=== PATIENT | male | born 1960 | race African-American/Black ===

== ENCOUNTER 2017-12-12 15:57 | Emergency (ER) | payer MEDICAID ==
[~2017-12-12] VITALS: Ht 182.9 cm; Wt 91.0 kg
[~2017-12-12 15:57] MED LIST: ABILIFY; HALOPERIDOL
[2017-12-12] MEDS ORDERED: ONDANSETRON HCL 4MG/2ML INJ IV STA (16:34)
[2017-12-12] MEDS ORDERED: MORPHINE SULFATE 4 MG/ML CPJ (NOT FOR IM USE) IV STA (16:34)
[2017-12-12] MEDS ORDERED: SODIUM CHLORIDE 0.9% 1,000 ML IV ONE (16:34)
[2017-12-12] MEDS ORDERED: FAMOTIDINE 20MG/2ML VIAL IV ONE (16:45)
[2017-12-12] MEDS ORDERED: MAGNESIUM/ALUMINUM HYDROXIDE/SIMETHICONE 30ML UDC PO ONE (16:45)
[2017-12-12 17:17] LABS: BASOPHILS % 0.4 % (0.0-2.0); EOSINOPHILS % 1.2 % (0.0-5.0); HEMATOCRIT. 29.1 % (42.0-52.0); HEMOGLOBIN. 9.7 g/dL (14.0-18.0); MEAN CORPUSCULAR HEMOGLOBIN 30.5 pg (28.0-32.0); MEAN CORPUSCULAR VOLUME 91.3 fL (80.0-94.0); MEAN PLATELET VOLUME 9.3 fl (7.4-10.4); MONOCYTES % 13.5 % (2.0-8.0); NEUTROPHILS % 65.9 % (40.0-76.0); PLATELET 238 x1000/uL (130-400); RED BLOOD CELL COUNT 3.19 mill/uL (4.7-6.1)
[2017-12-12 17:21] LABS: CHLORIDE 102 mEq/L (98-107)
[2017-12-12 17:23] LABS: INR 1.1; PARTIAL THROMBOPLASTIN TIME 31.8 sec (23.4-31.0); PROTHROMBIN TIME 11.1 sec (9.1-11.1)
[2017-12-12 17:24] LABS: ETHANOL BLOOD < 10 mg/dL
[2017-12-12 19:28] VITALS: BP 123/82
== END 2017-12-12 20:24 | disposition home or self-care (01) ==
LOC: ER 16:32 → CANBEDREQ 22:56
DX: R51 Headache (principal); R07.89 Other chest pain; R10.13 Epigastric pain; I10 Essential (primary) hypertension; F17.200 Nicotine dependence, unspecified, uncomplicated; Z98.890 Other specified postprocedural states
CPT/HCPCS: 36415; 70450; 71045; 74176; 80053; 83880; 84484; 85025; 85610; 85730; 93005; 99285; G0482; J2270; J2405; J3490; J7030

== ENCOUNTER 2018-11-17 07:59 | Emergency (ER) | payer MEDICAID ==
[~2018-11-17] VITALS: Ht 177.8 cm; Wt 100.0 kg
[2018-11-17] MEDS ORDERED: SODIUM CHLORIDE 0.9% 2,000 ML IV ONE (09:05)
[2018-11-17] MEDS ORDERED: ONDANSETRON HCL 4MG/2ML INJ IV STA (09:05)
[2018-11-17 09:21] LABS: CHLORIDE 107 mEq/L (98-107)
[2018-11-17 09:22] LABS: BASOPHILS % 0.5 % (0.0-2.0); EOSINOPHILS % 0.7 % (0.0-5.0); HEMATOCRIT. 37.9 % (42.0-52.0); HEMOGLOBIN. 12.5 g/dL (14.0-18.0); LYMPHOCYTES % 41.6 % (20.0-50.0); MEAN CORPUSCULAR HEMOGLOBIN 30.6 pg (28.0-32.0); MEAN CORPUSCULAR VOLUME 92.9 fL (80.0-94.0); MEAN PLATELET VOLUME 10.2 fl (7.4-10.4); MONOCYTES % 8.6 % (2.0-8.0); NEUTROPHILS % 48.6 % (40.0-76.0); PLATELET 187 x1000/uL (130-400); RED BLOOD CELL COUNT 4.08 mill/uL (4.7-6.1); RED CELL DISTRIBUTION WIDTH 14.6 % (11.6-14.6)
[2018-11-17] MEDS ORDERED: SODIUM CHLORIDE 0.9% 1,000 ML IV ONE (10:45)
[2018-11-17] MEDS ORDERED: POTASSIUM CHLORIDE INJ 40 MEQ in DEXT 5% WATER 250 ML IV ONE (10:45)
[2018-11-17] MEDS ORDERED: POTASSIUM CHLORIDE 20MEQ TABLET SR PO ONE (10:45)
[2018-11-17 11:30] LABS: CLARITY URINE CLEAR (CLEAR); COLOR URINE YELLOW (YELLOW); KETONES URINE NEGATIVE (NEGATIVE); LEUKOCYTE ESTERASE URINE NEGATIVE (NEGATIVE); NITRITE URINE NEGATIVE (NEGATIVE); OCCULT BLOOD URINE NEGATIVE (NEGATIVE); PH URINE 5.5 (4.5-8.0); PROTEIN URINE TRACE (NEGATIVE)
[2018-11-17 17:20] VITALS: BP 126/79
== END 2018-11-17 17:27 | disposition home or self-care (01) ==
LOC: ER 07:59
DX: R55 Syncope and collapse (principal); R11.10 Vomiting, unspecified; E87.2 Acidosis; E87.6 Hypokalemia; G40.909 Epilepsy, unspecified, not intractable, without status epilepticus; Z86.59 Personal history of other mental and behavioral disorders
CPT/HCPCS: 36415; 71045; 80053; 81003; 82962; 83605; 83690; 83735; 84484; 85025; 93005; 96361; 96374; 96375; 99284; J2405; J3480; J7030; J7060

== ENCOUNTER 2019-02-11 08:50 | Inpatient (IN) | payer MEDICAID ==
[~2019-02-11] VITALS: Ht 177.8 cm; Wt 90.3 kg
[2019-02-11] MEDS ORDERED: SODIUM CHLORIDE 0.9% 1,000 ML IV ONE (09:03)
[2019-02-11 10:13] LABS: CHLORIDE 106 mEq/L (98-107)
[2019-02-11 10:17] LABS: ETHANOL BLOOD < 10 mg/dL
[2019-02-11 10:20] LABS: BASOPHILS % 0.3 % (0.0-2.0); EOSINOPHILS % 1.2 % (0.0-5.0); HEMATOCRIT. 38.2 % (42.0-52.0); HEMOGLOBIN. 12.7 g/dL (14.0-18.0); LDL CHOLESTEROL 58 mg/dL (5-100); LYMPHOCYTES % 22.6 % (20.0-50.0); MEAN CORPUSCULAR VOLUME 93.3 fL (80.0-94.0); MEAN PLATELET VOLUME 10.3 fl (7.4-10.4); NEUTROPHILS % 64.9 % (40.0-76.0); PLATELET 169 x1000/uL (130-400); RED BLOOD CELL COUNT 4.09 mill/uL (4.7-6.1); RED CELL DISTRIBUTION WIDTH 14.7 % (11.6-14.6)
[2019-02-11] MEDS ORDERED: IOHEXOL-350 100 ML BOTTLE ONE (14:29)
[2019-02-11 20:50] VITALS: BP_SYST 114; BP_SYST 126; BP_SYST 139; BP_DIAS 65; BP_DIAS 81; BP_DIAS 87
[2019-02-11] MEDS: LEVETIRACETAM 500MG TABLET PO SCH (22:04)
[2019-02-11] MEDS ORDERED: INFLUENZA VIRUS VACCINE(AFLURIA) 0.5ML SYR IM ONE (22:45)
[2019-02-11] MEDS ORDERED: QUET300T19 PO (23:00)
[2019-02-11] MEDS ORDERED: LOSA50TA41 PO (23:00)
[2019-02-11] MEDS ORDERED: CHOL200010 PO (23:00)
[2019-02-11] MEDS ORDERED: IBUP-2028 PO (23:00)
[2019-02-11] MEDS ORDERED: SERT50TA12 PO (23:00)
[2019-02-11] MEDS ORDERED: OXCA300T4 PO (23:00)
[2019-02-11] MEDS ORDERED: ACETAMINOPHEN 325MG TABLET PO PRN (23:45)
[2019-02-11] MEDS ORDERED: ONDANSETRON HCL 4MG/2ML INJ IV PRN (23:45)
[2019-02-12] VITALS: BP 103/54
[2019-02-12] MEDS: LOSARTAN POTASSIUM 50 MG TABLET PO SCH ×2 (01:00→08:25)
[2019-02-12 04:00] VITALS: BP 118/64
[2019-02-12 07:06] LABS: CHLORIDE 108 mEq/L (98-107)
[2019-02-12 07:19] LABS: CREATINE KINASE 570 IU/L (39-308)
[2019-02-12 07:21] LABS: CREATINE KINASE MB FRACTION 7.4 ng/mL (0.5-3.6)
[2019-02-12 07:32] LABS: HEMATOCRIT. 38.4 % (42.0-52.0); HEMOGLOBIN. 12.9 g/dL (14.0-18.0); MEAN CORPUSCULAR HEMOGLOBIN 31.3 pg (28.0-32.0); MEAN CORPUSCULAR VOLUME 93.1 fL (80.0-94.0); RED BLOOD CELL COUNT 4.12 mill/uL (4.7-6.1); RED CELL DISTRIBUTION WIDTH 14.7 % (11.6-14.6)
[2019-02-12 08:00] VITALS: BP 112/59
[2019-02-12] MEDS: QUETIAPINE FUMARATE 50MG TABLET PO SCH ×3 (08:22→18:09)
[2019-02-12] MEDS: LEVETIRACETAM 500MG TABLET PO SCH ×2 (08:22→22:41)
[2019-02-12] MEDS: ENOXAPARIN 40MG/0.4ML SYR SUBCUT SCH (08:23)
[2019-02-12] MEDS: SERTRALINE HCL 50MG TABLET PO SCH (08:25)
[2019-02-12] MEDS: ASPIRIN 81MG TABLET PO SCH (11:50)
[2019-02-12 12:00] VITALS: BP 144/69
[2019-02-12 16:00] VITALS: BP_SYST 86; BP_SYST 96; BP_SYST 99; BP_DIAS 50; BP_DIAS 56; BP_DIAS 62
[2019-02-12 17:50] LABS: CREATINE KINASE 463 IU/L (39-308)
[2019-02-12 17:51] LABS: CREATINE KINASE MB FRACTION 5.3 ng/mL (0.5-3.6)
[2019-02-12 18:11] LABS: CLARITY URINE CLEAR (CLEAR); COLOR URINE YELLOW (YELLOW); KETONES URINE NEGATIVE (NEGATIVE); LEUKOCYTE ESTERASE URINE NEGATIVE (NEGATIVE); NITRITE URINE NEGATIVE (NEGATIVE); OCCULT BLOOD URINE NEGATIVE (NEGATIVE); PH URINE 6.5 (4.5-8.0); PROTEIN URINE NEGATIVE (NEGATIVE); SPECIFIC GRAVITY URINE 1.011 (1.005-1.030)
[2019-02-12 18:38] LABS: *BENZODIAZEPINES SCREEN URINE NEGATIVE (NEGATIVE); *COCAINE SCREEN URINE NEGATIVE (NEGATIVE); METHADONE URINE SCREEN NEGATIVE (NEGATIVE); OPIATES URINE SCREEN NEGATIVE (NEGATIVE)
[2019-02-12 18:39] LABS: *AMPHETAMINES SCREEN URINE NEGATIVE (NEGATIVE); *BARBITURATES SCREEN URINE NEGATIVE (NEGATIVE); CANNABINOID URINE SCREEN NEGATIVE (NEGATIVE); PHENCYCLIDINE URINE SCREEN NEGATIVE (NEGATIVE)
[2019-02-12 20:01] VITALS: BP_SYST 82; BP_SYST 84; BP_DIAS 47; BP_DIAS 48
[2019-02-12 20:55] LABS: PLATELET 137 x1000/uL (130-400); PLATELET ESTIMATE NORMAL
[2019-02-12] MEDS ORDERED: SODIUM CHLORIDE 0.9% 1,000 ML IV SCH (23:52)
[2019-02-12] MEDS: SODIUM CHLORIDE 0.9% 1,000 ML IV SCH (23:52)
[2019-02-13] VITALS: BP 92/51
[2019-02-13 04:00] VITALS: BP 105/62
[2019-02-13 06:48] LABS: HEMATOCRIT. 39.1 % (42.0-52.0); HEMOGLOBIN. 12.9 g/dL (14.0-18.0); MEAN CORPUSCULAR VOLUME 93.9 fL (80.0-94.0); MEAN PLATELET VOLUME 10.3 fl (7.4-10.4); PLATELET 184 x1000/uL (130-400); RED BLOOD CELL COUNT 4.17 mill/uL (4.7-6.1)
[2019-02-13 07:23] LABS: CHLORIDE 106 mEq/L (98-107)
[2019-02-13 08:00] VITALS: BP 82/44
[2019-02-13] MEDS: ENOXAPARIN 40MG/0.4ML SYR SUBCUT SCH (09:09)
[2019-02-13] MEDS: LEVETIRACETAM 500MG TABLET PO SCH (09:09)
[2019-02-13] MEDS: QUETIAPINE FUMARATE 50MG TABLET PO SCH (09:09)
[2019-02-13] MEDS: ASPIRIN 81MG TABLET PO SCH (09:11)
[2019-02-13] MEDS: SERTRALINE HCL 50MG TABLET PO SCH (09:13)
[2019-02-13] MEDS: SODIUM CHLORIDE 0.9% 1,000 ML IV SCH (09:52)
[2019-02-13 12:00] VITALS: BP 112/60
[2019-02-13 13:46] VITALS: BP 112/60
[2019-02-13] MEDS ORDERED: KEPPSOL GT (13:53)
[2019-02-13 17:12] LABS: PLATELET ESTIMATE NORMAL
== END 2019-02-13 14:35 | disposition home or self-care (01) | DRG 204 ==
LOC: ER 08:50 → 7WST 13:10 → EDBEDREQSVC 13:21 → EDBEDREQ 13:21 → EDBEDREQTM 13:21 → ENRESERV 19:46
PROVIDERS: ADMIT Internal Medicine; ATTEND Internal Medicine
PROC: 4A10X4Z Monitoring of Central Nervous Electrical Activity, External Approach (ICD-10-PCS; principal; 2019-02-12)
DX: I95.1 Orthostatic hypotension (principal); G92 Toxic encephalopathy; S05.71XA Avulsion of right eye, initial encounter; G40.909 Epilepsy, unspecified, not intractable, without status epilepticus; X58.XXXA Exposure to other specified factors, initial encounter; I10 Essential (primary) hypertension; Y93.89 Activity, other specified; Z86.73 Personal history of transient ischemic attack (TIA), and cerebral infarction without residual deficits; Y92.89 Other specified places as the place of occurrence of the external cause; Y99.8 Other external cause status
CPT/HCPCS: 36415; 70496; 70551; 71045; 80048; 80305; 80320; 81003; 82550; 82553; 82962; 83605; 83721; 84145; 84484; 93005; 93306; 93880; 97161; 97166; 99285; J1650; J7030; Q9967; G0480

== ENCOUNTER 2019-11-11 00:50 | Inpatient (IN) | payer MEDICAID ==
[~2019-11-11] VITALS: Ht 177.8 cm; Wt 86.6 kg
[~2019-11-11 00:50] MED LIST changes: -ABILIFY; +CHOL200010 PO; -HALOPERIDOL; +IBUP-2028 PO; +KEPPSOL GT; +LOSA50TA41 PO; +OXCA300T4 PO; +QUET300T19 PO; +SERT50TA12 PO
[2019-11-11] MEDS ORDERED: SODIUM CHLORIDE 0.9% 1,000 ML IV ONE ×2 (01:23→05:20)
[2019-11-11 02:01] LABS: CHLORIDE 97 mEq/L (98-107)
[2019-11-11 02:05] LABS: ETHANOL BLOOD < 10 mg/dL
[2019-11-11 02:18] LABS: BASOPHILS % 0.4 % (0.0-2.0); EOSINOPHILS % 0.2 % (0.0-5.0); HEMATOCRIT. 40.8 % (42.0-52.0); HEMOGLOBIN. 13.8 g/dL (14.0-18.0); LYMPHOCYTES % 15.2 % (20.0-50.0); MEAN CORPUSCULAR HEMOGLOBIN 31.7 pg (28.0-32.0); MEAN CORPUSCULAR VOLUME 93.3 fL (80.0-94.0); MEAN PLATELET VOLUME 10.6 fl (7.4-10.4); NEUTROPHILS % 75.2 % (40.0-76.0); PLATELET 181 x1000/uL (130-400); RED BLOOD CELL COUNT 4.37 mill/uL (4.7-6.1); RED CELL DISTRIBUTION WIDTH 14.5 % (11.6-14.6)
[2019-11-11 02:59] LABS: PROTHROMBIN TIME 10.6 sec (9.6-11.0)
[2019-11-11] MEDS ORDERED: CEFTRIAXONE 1 G PREMIX 50 ML IV ONE (04:00)
[2019-11-11] MEDS ORDERED: AZITHROMYCIN 500 MG in DEXT 5% WATER 250 ML IV ONE (04:00)
[2019-11-11 09:00] VITALS: BP 95/52
[2019-11-11] MEDS ORDERED: ACETAMINOPHEN 325MG TABLET PO PRN (10:30)
[2019-11-11] MEDS ORDERED: ONDANSETRON HCL 4MG/2ML INJ IV PRN (10:30)
[2019-11-11] MEDS: ENOXAPARIN 30MG/0.3ML SYR SUBCUT SCH (11:21)
[2019-11-11] MEDS: SODIUM CHLORIDE 0.9% 1,000 ML IV SCH ×2 (11:22→23:14)
[2019-11-11] MEDS ORDERED: SODIUM POLYSTYRENE SULFONATE 15 G/60 ML BOT PO NR (11:30)
[2019-11-11 12:00] VITALS: BP 95/59
[2019-11-11 16:00] VITALS: BP 100/58
[2019-11-11 18:02] LABS: CLARITY URINE CLEAR (CLEAR); COLOR URINE YELLOW (YELLOW); KETONES URINE NEGATIVE (NEGATIVE); LEUKOCYTE ESTERASE URINE NEGATIVE (NEGATIVE); NITRITE URINE NEGATIVE (NEGATIVE); OCCULT BLOOD URINE NEGATIVE (NEGATIVE); PROTEIN URINE NEGATIVE (NEGATIVE); SPECIFIC GRAVITY URINE 1.009 (1.005-1.030); UROBILINOGEN URINE 0.2 E.U./dL (0.2-1.0)
[2019-11-11 18:16] LABS: METHADONE URINE SCREEN NEGATIVE (NEGATIVE)
[2019-11-11 18:17] LABS: *AMPHETAMINES SCREEN URINE NEGATIVE (NEGATIVE); *BARBITURATES SCREEN URINE NEGATIVE (NEGATIVE); *BENZODIAZEPINES SCREEN URINE NEGATIVE (NEGATIVE); *COCAINE SCREEN URINE NEGATIVE (NEGATIVE); CANNABINOID URINE SCREEN NEGATIVE (NEGATIVE); OPIATES URINE SCREEN NEGATIVE (NEGATIVE); PHENCYCLIDINE URINE SCREEN NEGATIVE (NEGATIVE)
[2019-11-11 20:00] VITALS: BP 123/79
[2019-11-11 21:04] LABS: CHLORIDE 103 mEq/L (98-107)
[2019-11-11 21:12] LABS: CREATINE KINASE 701 IU/L (39-308)
[2019-11-12] VITALS: BP 126/72
[2019-11-12] MEDS: SODIUM CHLORIDE 0.9% 1,000 ML IV SCH ×2 (02:15→09:37)
[2019-11-12 04:00] VITALS: BP 127/82
[2019-11-12] MEDS ORDERED: AZITHROMYCIN 500 MG in DEXT 5% WATER 250 ML IV SCH ×2 (06:00→09:00)
[2019-11-12] MEDS ORDERED: CEFTRIAXONE 1,000 MG in DEXTROSE 5% WATER 50 ML IV SCH ×2 (06:00→08:00)
[2019-11-12 06:31] LABS: BASOPHILS % 0.8 % (0.0-2.0); EOSINOPHILS % 3.8 % (0.0-5.0); HEMATOCRIT. 38.3 % (42.0-52.0); HEMOGLOBIN. 12.7 g/dL (14.0-18.0); LYMPHOCYTES % 35.9 % (20.0-50.0); MEAN CORPUSCULAR HEMOGLOBIN 31.4 pg (28.0-32.0); MEAN CORPUSCULAR VOLUME 94.9 fL (80.0-94.0); MEAN PLATELET VOLUME 10.7 fl (7.4-10.4); NEUTROPHILS % 45.5 % (40.0-76.0); PLATELET 163 x1000/uL (130-400); RED BLOOD CELL COUNT 4.04 mill/uL (4.7-6.1); RED CELL DISTRIBUTION WIDTH 14.5 % (11.6-14.6)
[2019-11-12 06:47] LABS: CREATINE KINASE 573 IU/L (39-308)
[2019-11-12 06:48] LABS: CREATINE KINASE MB FRACTION 3.8 ng/mL (0.5-3.6)
[2019-11-12 08:00] VITALS: BP 136/81
[2019-11-12] MEDS: ENOXAPARIN 30MG/0.3ML SYR SUBCUT SCH (09:32)
[2019-11-12] MEDS ORDERED: LEVETIRACETAM 500MG/5ML CUP GT SCH (11:15)
[2019-11-12] MEDS ORDERED: SERTRALINE HCL 50MG TABLET PO SCH (11:30)
[2019-11-12] MEDS ORDERED: LOSARTAN POTASSIUM 50 MG TABLET PO SCH (11:30)
[2019-11-12 12:00] VITALS: BP 145/87
[2019-11-12] MEDS ORDERED: QUETIAPINE FUMARATE 50MG TABLET PO SCH (15:30)
[2019-11-12 16:00] VITALS: BP 140/90
[2019-11-12 16:15] VITALS: BP 140/90
[2019-11-12] MEDS ORDERED: OXCARBAZEPINE 300MG TABLET PO SCH (17:00)
== END 2019-11-12 17:55 | disposition home or self-care (01) | DRG 139 ==
LOC: ER 00:50 → 7WST 04:07 → ENRESERV 07:31 → 5WST 18:40
PROVIDERS: ADMIT Internal Medicine; ATTEND Internal Medicine
DX: J18.9 Pneumonia, unspecified organism (principal); N17.0 Acute kidney failure with tubular necrosis; E87.1 Hypo-osmolality and hyponatremia; E87.5 Hyperkalemia; I10 Essential (primary) hypertension; N40.0 Benign prostatic hyperplasia without lower urinary tract symptoms; E86.0 Dehydration; G40.909 Epilepsy, unspecified, not intractable, without status epilepticus; K59.00 Constipation, unspecified; R41.89 Other symptoms and signs involving cognitive functions and awareness; I95.9 Hypotension, unspecified; R62.50 Unspecified lack of expected normal physiological development in childhood; M62.82 Rhabdomyolysis; G93.41 Metabolic encephalopathy; Z90.01 Acquired absence of eye; Z86.19 Personal history of other infectious and parasitic diseases
CPT/HCPCS: 36415; 71045; 74176; 80048; 80053; 80305; 80320; 81003; 82550; 82553; 83605; 84145; 84484; 85025; 86850; 86900; 87426; 93005; 93970; 96365; 99291; J0456; J0696; J1650; J7030; J7060; G0480